=== PATIENT | male | born 1985 | race Caucasian/White ===

== ENCOUNTER 2018-01-20 13:27 | Emergency (ER) | payer BC ==
[~2018-01-20] VITALS: Ht 167.6 cm; Wt 108.9 kg
[2018-01-20 14:02] VITALS: BP 139/83
[2018-01-20] MEDS ORDERED: KETOROLAC TROMETH 60MG/2ML VIAL IM ONE (15:00)
== END 2018-01-20 15:48 | disposition home or self-care (01) ==
LOC: ER 13:27
DX: M54.42 Lumbago with sciatica, left side (principal); M54.41 Lumbago with sciatica, right side; G89.29 Other chronic pain; F17.210 Nicotine dependence, cigarettes, uncomplicated
CPT/HCPCS: 96372; 99283; J1885